=== PATIENT | male | born 1975 | race African-American/Black ===

== ENCOUNTER 2017-03-23 23:19 | Emergency (ER) | payer OTHER ==
[~2017-03-23] VITALS: Ht 182.9 cm; Wt 110.0 kg
[2017-03-23 23:22] VITALS: BP 145/99; PULSE 118; RESP 15; TEMP 98.6; O2SAT 98
[2017-03-23] MEDS ORDERED: blood pressure (23:45)
[2017-03-23] MEDS ORDERED: [UNRECOGNIZED DRUG - REMARK] PO (23:45)
[2017-03-24] MEDS ORDERED: KETOROLAC TROMETHAMINE 30 MG/ML (IVP) VIAL IV PUSH ONE (03:15)
[2017-03-24 03:42] LABS: AUTOMATED NEUTROPHIL # 3.5 TH/MM3 (1.8-7.7); BASOPHIL # 0.1 TH/MM3 (0-0.2); BASOPHIL % 1.2 % (0.0-2.0); EOSINOPHIL # 0.2 TH/MM3 (0-0.4); EOSINOPHIL % 2.5 % (0.0-4.0); HEMATOCRIT 50.9 % (39.0-51.0); HEMO FLAGS DIFF FINAL; LYMPH % 26.8 % (9.0-44.0); LYMPHOCYTE # 1.8 TH/MM3 (1.0-4.8); MEAN CELL VOLUME 83.2 FL (80.0-100.0); MEAN CORPUSCULAR HEMOGLOBIN 27.6 PG (27.0-34.0); MEAN CORPUSCULAR HGB CONC 33.1 % (32.0-36.0); MONO % 18.1 % (0.0-8.0); NEUT % 51.4 % (16.0-70.0); PLATELET COUNT 312 TH/MM3 (150-450); RED BLOOD COUNT 6.12 MIL/MM3 (4.50-5.90); RED CELL DISTRIBUTION WIDTH 13.6 % (11.6-17.2); WHITE BLOOD COUNT 6.9 TH/MM3 (4.0-11.0)
[2017-03-24 03:52] LABS: BLOOD, URINE NEG (NEG); COMMENT (UR) CULT NOT INDICATED; CULTURE IF INDICATED CULT NOT INDICATED; GLUCOSE,URINE NEG (NEG); HYALINE CAST, URINE 1 /lpf (RARE); KETONE, URINE NEG (NEG); MUCUS URINE MOD /lpf (OCC); NITRITE,URINE NEG (NEG); PH, URINE 5.5 (5.0-8.5); SQUAMOUS EPITHELIAL CELL URINE <1 /hpf (0-5); URINE COLOR YELLOW (YELLW/STRAW)
--- NOTE | 2017-03-24 04:01 | RADRPT ---
EXAM DATE/TIME: 03/24/2017 03:35 [place] COMPARISON: No previous studies available for comparison. INDICATIONS : Chronic lower back pain- no injury today MEDICAL HISTORY : None. SURGICAL HISTORY : None. ENCOUNTER: Initial ACUITY: 1 day PAIN SCORE: 8/10 LOCATION: Bilateral Lumbar FINDINGS: Two view examination was performed. There are five non-rib bearing vertebral bodies. The vertebral bodies are in normal alignment without evidence of subluxation or scoliosis. The disc spaces are noreen ntained. The pedicles are intact. Bony mineralization is normal. No fracture is identified. CONCLUSION: Unremarkable limited examination of the lumbar spine. Jaiden Velázquez MD on March 24, 2017 at 3:59 Board Certified Radiologist. This report was verified electronically.
[2017-03-24 04:03] LABS: ALCOHOL LESS THAN 3 MG/DL (0-5); ALKALINE PHOSPHATASE 39 U/L (45-117); ALT (GPT) 37 U/L (12-78); ANION GAP 10 MEQ/L (5-15); AST (GOT) 29 U/L (15-37); BICARBONATE 28.9 MEQ/L (21.0-32.0); BLOOD UREA NITROGEN 31 MG/DL (7-18); CHLORIDE 95 MEQ/L (98-107); GLOMERULAR FILTRATION RATE 48 ML/MIN (>89); POTASSIUM 3.6 MEQ/L (3.5-5.1); SODIUM (NA) 134 MEQ/L (136-145); TOTAL BILIRUBIN ADULT 0.7 MG/DL (0.2-1.0)
[2017-03-24 05:44] VITALS: BP 128/69
--- NOTE | 2017-03-24 05:47 | PD ---
HPI Chief Complaint: Back/ Neck Pain or Injury Time Seen by Provider: 02:47 Travel History International Travel<30 days: No Contact w/Intl Traveler<30days: No Traveled to known affect area: No History of Present Illness HPI 41-year-old black male presents to emergency department accompanied by his mother for evaluation of muscle and joint pain. He states it's worse in his lower back. He states that he feels achy and weak. He denies any fever or chills. No ear pain or sore throat. No cough or congestion. No nausea vomiting. He's been eating and drinking normally. He's been urinating and stooling normally. Patient states that he has a service connected disability with the [place]. He has not followed up with the [place] regarding this most recent illness. Patient is very vague on his medical problems. Patient denies any substance abuse. No IV drug abuse. He states that he does drink on occasion but has not had alcohol in several days. PFSH Past Medical History Narrative Medical Depression, GERD, hypertension Depression: Yes Diminished Hearing: No GERD: Yes Hypertension: Yes Tetanus Vaccination: < 5 Years Past Surgical History Narrative Surgical Umbilical herniorrhaphy Abdominal Surgery: Yes (umbelical hernia repair) Social History Alcohol Use: Yes (weekly) Tobacco Use: Yes Substance Use: No Allergies-Medications (Allergen,Severity, Reaction): Coded Allergies: No Known Allergies (Unverified , 03/23/17) Reported Meds & Prescriptions Reported Meds & Active Scripts Active Reported [blood pressure] [heart mediaction] 1 Tab PO DAILY Review of Systems Except as stated in HPI: all other systems reviewed are Neg Physical Exam Narrative GENERAL: Well-developed, well-nourished in no apparent distress. Nontoxic appearing. HEAD: Normocephalic, atraumatic. EYES: Pupils equal round and reactive. Extraocular motions intact. No scleral icterus. No injection or drainage. ENT: Nose clear. Throat without erythema, tonsillar hypertrophy or exudate. Uvula midline. Airway patent. NECK: Trachea midline. Supple, nontender, moves head freely. No central bony tenderness or spasm. CARDIOVASCULAR: Regular rate and rhythm without murmurs, gallops, or rubs. RESPIRATORY: Clear to auscultation. Breath sounds equal bilaterally. No wheezes , rales, or rhonchi. GASTROINTESTINAL: Abdomen soft, non-tender, nondistended. No hepato-splenomegaly , or palpable masses. No guarding. EXTREMITIES: No clubbing, cyanosis, or edema. No joint tenderness. BACK: Nontender without deformity. No flank tenderness. NEUROLOGICAL: Awake, alert and oriented x 3 .Cranial nerves grossly intact. Motor and sensory grossly within normal limits. Normal speech. Data Data Last Documented VS Vital Signs Date Time Temp Pulse Resp B/P (MAP) Pulse Ox O2 Delivery O2 Flow Rate FiO2 03/24/17 05:44 92 18 128/69 (88) 96 03/23/17 23:22 98.6 Room Air Orders Orders Complete Blood Count With Diff (03/24/17 03:02) Comprehensive Metabolic Panel (03/24/17 03:02) Urinalysis - C+S If Indicated (03/24/17 03:02) Spine, Lumbar - Ltd (Ap & Lat) (03/24/17 03:02) Iv Access Insert/Monitor (03/24/17 03:02) Drug Screen, Random Urine (03/24/17 03:02) Alcohol (Ethanol) (03/24/17 03:02) Ketorolac Inj (Toradol Inj) (03/24/17 03:15) Labs Laboratory Tests Test 03/24/17 03:10 03/24/17 03:11 White Blood Count 6.9 TH/MM3 Red Blood Count 6.12 MIL/MM3 Hemoglobin 16.9 GM/DL Hematocrit 50.9 % Mean Corpuscular Volume 83.2 FL Mean Corpuscular Hemoglobin 27.6 PG Mean Corpuscular Hemoglobin Concent 33.1 % Red Cell Distribution Width 13.6 % Platelet Count 312 TH/MM3 Mean Platelet Volume 8.6 FL Neutrophils (%) (Auto) 51.4 % Lymphocytes (%) (Auto) 26.8 % Monocytes (%) (Auto) 18.1 % Eosinophils (%) (Auto) 2.5 % Basophils (%) (Auto) 1.2 % Neutrophils # (Auto) 3.5 TH/MM3 Lymphocytes # (Auto) 1.8 TH/MM3 Monocytes # (Auto) 1.2 TH/MM3 Eosinophils # (Auto) 0.2 TH/MM3 Basophils # (Auto) 0.1 TH/MM3 CBC Comment DIFF FINAL Differential Comment Blood Urea Nitrogen 31 MG/DL Creatinine 1.89 MG/DL Random Glucose 100 MG/DL Total Protein 9.6 GM/DL Albumin 3.6 GM/DL Calcium Level 9.7 MG/DL Alkaline Phosphatase 39 U/L Aspartate Amino Transf (AST/SGOT) 29 U/L Alanine Aminotransferase (ALT/SGPT) 37 U/L Total Bilirubin 0.7 MG/DL Sodium Level 134 MEQ/L Potassium Level 3.6 MEQ/L Chloride Level 95 MEQ/L Carbon Dioxide Level 28.9 MEQ/L Anion Gap 10 MEQ/L Estimat Glomerular Filtration Rate 48 ML/MIN Ethyl Alcohol Level LESS THAN 3 MG/DL Urine Color YELLOW Urine Turbidity HAZY Urine pH 5.5 Urine Specific [place] 1.032 Urine Protein 100 mg/dL Urine Glucose (UA) NEG mg/dL Urine Ketones NEG mg/dL Urine Occult Blood NEG Urine Nitrite NEG Urine Bilirubin NEG Urine Urobilinogen 4.0 MG/DL Urine Leukocyte Esterase NEG Urine WBC 3 /hpf Urine Squamous Epithelial Cells <1 /hpf Urine Hyaline Casts 1 /lpf Urine Mucus MOD /lpf Microscopic Urinalysis Comment CULT NOT INDICATED Urine Opiates Screen NEG Urine Barbiturates Screen NEG Urine Amphetamines Screen NEG Urine Benzodiazepines Screen NEG Urine Cocaine Screen POS Urine Cannabinoids Screen NEG MDM Medical Decision Making Medical Screen Exam Complete: Yes Emergency Medical Condition: Yes Medical Record Reviewed: Yes Differential Diagnosis Differential diagnoses: Electrolyte abnormality, influenza-like illness, dehydration, alcohol abuse, substance abuse, rhabdomyolysis, epidural abscess Narrative Course IV access is obtained. Routine laboratory status sent for analysis. Patient's given Toradol 30 mg IV for pain. Patient laboratory tests have come back showing some mild dehydration along with cocaine abuse. Patient's results have been discussed with the patient as well as his mother. The patient here is denying substance abuse. [facility] well as discussing [facility] abuse treatment. The patient is feeling improved. He is medically stable for discharge. Diagnosis Primary Impression: Dehydration Additional Impression: Cocaine abuse Patient Instructions: General Instructions Additional Instructions: Rest. Force fluids. Tylenol or Advil for pain. [facility] in [facility] 24 hours. Return to the ER for emergencies. Follow-up with [facility] for substance abuse counseling and treatment. Avoid any illegal drugs or alcohol. Med/Other Pt SpecificInfo: No Meds Exist/No RX given Disposition: DISCHARGE HOME Condition: Stable Gurvinder Mclean Mar 24, 2017 05:47
== END 2017-03-24 06:07 | disposition home or self-care (01) ==
LOC: NEPD 23:19
DX: E86.0 Dehydration (principal); F14.10 Cocaine abuse, uncomplicated; K21.9 Gastro-esophageal reflux disease without esophagitis; I10 Essential (primary) hypertension; F32.9 Major depressive disorder, single episode, unspecified; Z72.0 Tobacco use; G89.29 Other chronic pain
CPT/HCPCS: 72100; 80053; 80307; 81001; 85025; 96374; 99284; J1885